=== PATIENT | male | born 1975 | race Two or more races ===

== ENCOUNTER 2017-02-02 19:46 | Emergency (ER) | payer OTHER ==
[~2017-02-02] VITALS: Ht 172.7 cm; Wt 167.8 kg
[~2017-02-02 19:46] MED LIST: ALBU90OI INH; AZIT250 PO; ERYT500 PO; HYDGUAL120 PO; OXYACE5T PO; PRED20 PO; QUET100
[2017-02-02] MEDS ORDERED: Bactrim Ds Tab1 EACH PO ×2 (21:49→22:09)
[2017-02-02] MEDS ORDERED: Keflex500 MG PO ×2 (21:49→22:09)
[2018-01-09] MEDS ORDERED: ZESTORETIC 20-121 EA PO (14:27)
[2018-01-21] MEDS ORDERED: ASPI325 PO (13:58)
[2018-01-21] MEDS ORDERED: ATOR40TA PO (13:59)
[2018-01-21] MEDS ORDERED: LISI5 PO (14:00)
== END 2017-02-02 22:13 | disposition home or self-care (01) ==
LOC: ER 19:46
DX: L03.116 Cellulitis of left lower limb (principal); I11.0 Hypertensive heart disease with heart failure; I50.9 Heart failure, unspecified
CPT/HCPCS: 99283

== ENCOUNTER 2021-08-14 05:14 | Observation (INO) | payer OTHER ==
[~2021-08-14] VITALS: Ht 185.4 cm; Wt 162.0 kg
[~2021-08-14 05:14] MED LIST changes: +ASPI325 PO; +ATOR40TA PO; +Bactrim Ds Tab1 EACH PO; +Keflex500 MG PO; +LISI5 PO; +ZESTORETIC 20-121 EA PO
[2021-08-14 05:51] LABS: BASOPHILS ABSOLUTE AUTO 0.06 K/mm3 (0.00-0.23); BASOPHILS PERCENT AUTO 1 % (0-2); EOSINOPHILS ABSOLUTE AUTO 0.43 K/mm3 (0.00-0.68); EOSINOPHILS PERCENT AUTO 4 % (0-6); Hemoglobin 15.5 g/dL (13.5-17.5); IMMATURE GRAN ABSOLUTE AUTO 0.05 K/mm3 (0.00-0.10); IMMATURE GRAN PERCENT AUTO 1 % (0-1); LYMPHOCYTES ABSOLUTE AUTO 2.65 K/mm3 (0.84-5.20); LYMPHOCYTES PERCENT AUTO 25 % (21-46); MONOCYTES ABSOLUTE AUTO 0.53 K/mm3 (0.16-1.47); MONOCYTES PERCENT AUTO 5 % (4-13); Mean Corpuscular HGB 26.4 pg (26.0-34.0); Mean Corpuscular HGB Conc 32.3 g/dL (31.5-36.5); Mean Corpuscular Volume 82 fL (80-100); Mean Platelet Volume 10.9 fL (9.1-12.4); NEUTROPHILS ABSOLUTE AUTO 6.83 K/mm3 (1.96-9.15); NEUTROPHILS PERCENT AUTO 65 % (41-73); Platelet Count 289 K/mm3 (150-400); RDW Coefficient Variation 15.6 % (11.7-14.2); RDW Standard Deviation 46.2 fL (35.1-46.3); Red Blood Cell Count 5.87 M/mm3 (4.30-5.90); White Blood Cell Count 10.55 K/mm3 (4.00-11.30)
[2021-08-14 06:11] LABS: Albumin, Blood 3.4 g/dL (3.4-5.0); Albumin/Globulin Ratio 0.7 (0.8-1.8); Bilirubin, Total 0.4 mg/dL (0.1-1.0); Bun/Creatinine Ratio 17.7 (12.0-20.0); Creatinine, Blood 0.85 mg/dL (0.60-1.20); Globulin, Blood 4.6 g/dL (2.2-4.0); Potassium, Blood 3.8 mmol/L (3.5-5.5)
--- NOTE | 2021-08-14 11:57 | NUR ---
CONTACTED BY RADIOLOGY, INFORMED PATIENT EXCEEDS WEIGHT FOR MRI. DR ALCARAZ CONTACTED AND INFORMED.
[2021-08-14 15:17] LABS: U Amphetamine Screen DETECTED; U Barbituate Screen Not Detected; U Benzodiazapine Screen Not Detected; U Methamphetamine Screen DETECTED
[2021-08-14 15:18] LABS: U Buprenorphine Screen Not Detected; U Cannabinoids Screen Not Detected; U Cocaine Screen Not Detected; U Methadone Screen Not Detected; U Opiates Screen Not Detected; U Oxycodone Screen Not Detected; U Phencyclidine Screen Not Detected; U Propoxyphene Screen Not Detected
--- NOTE | 2021-08-14 17:34 | NUR ---
SHIFT SUMMARY PT ARRIVED FROM ER TODAY FOR CVA. LEFT SIDED WEAKNESS SLIGHTLY IMPROVED BUT STILL PRESENT.INFORMED BY RADIOLOGY THAT PATIENT EXEEDS WEIGHT LIMIT FOR MRI, CONTACTED DR ALCARAZ AND INFORMED HIM. PT SAW PATIENT, ECHO COMPLETED. FAMILY AT BEDSIDE. WILL CONTINUE TO MONITOR.
--- NOTE | 2021-08-15 04:17 | NUR ---
SHIFT SUMMARY, PATIENT AXOX 4 AND ONE ASSIST TO BSC. UNDERWRITING MANAGER STRONG AND EQUAL. REPORTS LEFT SIDE WEAKNESS IMPROVING. PIV REMAINS INTACT. TELE MONITOR NSR 81. MOTHER PRESENT IN ROOM THROUGHOUT THE SHIFT. VSS/AFEBRILE. DENIES PAIN, SOB, AND N/V. INCONTINENT AT TIMES. USED CPAP PART OF NIGHT STATING 94% ON CONTINUOUS PULSE OXIMETRY. CALL LIGHT IN REACH. BED IN LOWEST POSITION. WILL CONTINUE TO MONITOR UNTIL DAY SHIFT NURSE ASSUMES CARE.
[2021-08-15 05:18] LABS: CHOL/HDL RATIO 2.7; Cholesterol 119 mg/dL (50-200); HDL Cholesterol 44 mg/dL (>39); LDL/HDL RATIO 1.2; Low Density Lipoprotein Chol 54 mg/dL (0-110); Triglycerides 104 mg/dL (30-160); Very Low Density Lipoprot Chol 20 mg/dL (6-32)
[2021-08-15] MEDS ORDERED: NICO21TP TOP (12:24)
--- NOTE | 2021-08-15 13:53 | NUR ---
DISCHARGE SUMMARY PT RECEIVED DISCHARGE, FOLLOWUP, AND MEDICATION INSTRUCTIONS. PT VOICED COMPLETE UNDERSTANDING AND HAS NO QUESTIONS AT THIS TIME. IV REMOVED WITH CATHETER TIP INTACT.
[2021-08-23] MEDS ORDERED: CLOP75 PO (01:03)
== END 2021-08-15 14:45 | disposition home health service (06) ==
LOC: ER 05:14 → MEDS 05:15
PROVIDERS: Student in an Organized Health Care Education/Training Program; ADMIT Hospitalist
DX: G45.9 Transient cerebral ischemic attack, unspecified (principal); I11.0 Hypertensive heart disease with heart failure; I50.9 Heart failure, unspecified; E11.9 Type 2 diabetes mellitus without complications; J44.9 Chronic obstructive pulmonary disease, unspecified; F17.210 Nicotine dependence, cigarettes, uncomplicated; F41.9 Anxiety disorder, unspecified; F15.10 Other stimulant abuse, uncomplicated; G47.33 Obstructive sleep apnea (adult) (pediatric); E66.9 Obesity, unspecified
CPT/HCPCS: 36415; 70450; 70496; 70498; 80053; 80061; 82947; 83036; 84443; 85025; 93005; 93010; 94640; 94660; 94664; 94760; 94762; 96372; 97116; 97161; 99285-25; A9270; C8929; G0378; J1650; Q9957; Q9967

== ENCOUNTER 2021-09-03 13:09 | Emergency (ER) | payer OTHER ==
[~2021-09-03] VITALS: Ht 182.9 cm; Wt 167.8 kg
[~2021-09-03 13:09] MED LIST changes: +CLOP75 PO; +NICO21TP TOP
[2021-09-03] MEDS ORDERED: Seroquel Xr50 MG PO (13:40)
[2021-09-03] MEDS ORDERED: Aspir 8181 MG PO (13:40)
[2021-09-03] MEDS ORDERED: METF500 PO (13:41)
[2021-09-03] MEDS ORDERED: POTA10T PO (13:41)
[2021-09-03] MEDS ORDERED: VITAMIN D5000 UNIT PO (13:41)
[2021-09-03 13:48] LABS: BASOPHILS ABSOLUTE AUTO 0.07 K/mm3 (0.00-0.23); BASOPHILS PERCENT AUTO 1 % (0-2); EOSINOPHILS ABSOLUTE AUTO 0.43 K/mm3 (0.00-0.68); EOSINOPHILS PERCENT AUTO 4 % (0-6); Hematocrit 44.7 % (37.0-53.0); Hemoglobin 14.7 g/dL (13.5-17.5); IMMATURE GRAN ABSOLUTE AUTO 0.04 K/mm3 (0.00-0.10); IMMATURE GRAN PERCENT AUTO 0 % (0-1); LYMPHOCYTES ABSOLUTE AUTO 2.87 K/mm3 (0.84-5.20); LYMPHOCYTES PERCENT AUTO 26 % (21-46); MONOCYTES ABSOLUTE AUTO 0.74 K/mm3 (0.16-1.47); MONOCYTES PERCENT AUTO 7 % (4-13); Mean Corpuscular HGB 26.3 pg (26.0-34.0); Mean Corpuscular HGB Conc 32.9 g/dL (31.5-36.5); Mean Corpuscular Volume 80 fL (80-100); Mean Platelet Volume 11.1 fL (9.1-12.4); NEUTROPHILS ABSOLUTE AUTO 7.07 K/mm3 (1.96-9.15); NEUTROPHILS PERCENT AUTO 63 % (41-73); Platelet Count 319 K/mm3 (150-400); RDW Coefficient Variation 15.7 % (11.7-14.2); White Blood Cell Count 11.22 K/mm3 (4.00-11.30)
[2021-09-03 14:05] LABS: Albumin, Blood 3.6 g/dL (3.4-5.0); Albumin/Globulin Ratio 0.9 (0.8-1.8); Bilirubin, Total 0.6 mg/dL (0.1-1.0); Bun/Creatinine Ratio 18.2 (12.0-20.0); Creatinine, Blood 0.88 mg/dL (0.60-1.20); Potassium, Blood 4.2 mmol/L (3.5-5.5); Total Protein, Blood 7.6 g/dL (6.4-8.2)
[2021-09-03 14:45] LABS: CPK Creatine Kinase 43 U/L (39-308)
[2021-09-03 14:46] LABS: Creatine Kinase MB <1.0 ng/mL (0.0-3.6); Creatine Kinase MB Index Unable to Calculate (0.0-4.0)
[2021-09-03 15:06] LABS: Influenza A, PCR NEGATIVE (NEGATIVE); Influenza B, PCR NEGATIVE (NEGATIVE); Resp Syncytial Virus, PCR NEGATIVE (NEGATIVE); SARS-Cov-2 (COVID-19) PCR, MMC NEGATIVE (NEGATIVE)
[2021-09-03 16:22] LABS: Base Excess Venous 5.6 mmol/L; Bicarbonate Venous 28.4 mmol/L (24.0-30.0); PCO2 Venous 48.8 mmHg (38-42); PO2 Venous 104 mmHg (38-42)
== END 2021-09-03 17:13 | disposition home or self-care (01) ==
LOC: ER 13:09
PROVIDERS: Physician Assistant; Student in an Organized Health Care Education/Training Program
DX: R40.0 Somnolence (principal); R47.9 Unspecified speech disturbances; T43.595A Adverse effect of other antipsychotics and neuroleptics, initial encounter; R06.89 Other abnormalities of breathing; J44.9 Chronic obstructive pulmonary disease, unspecified; G45.9 Transient cerebral ischemic attack, unspecified; I11.0 Hypertensive heart disease with heart failure; I50.9 Heart failure, unspecified; F17.210 Nicotine dependence, cigarettes, uncomplicated; Z79.899 Other long term (current) drug therapy; Z79.82 Long term (current) use of aspirin; Y92.9 Unspecified place or not applicable; Z20.822 Contact with and (suspected) exposure to COVID-19
CPT/HCPCS: 0241U; 36415; 70450; 71045; 80053; 82550; 82553; 82803; 82947; 85025; 93005; 93010

== ENCOUNTER → 2022-05-10 | Outpatient (CLI) | payer OTHER ==
[~2022-05-10] MED LIST changes: +Aspir 8181 MG PO; +METF500 PO; +POTA10T PO; +Seroquel Xr50 MG PO; +VITAMIN D5000 UNIT PO
[2022-05-10 16:14] LABS: Bun/Creatinine Ratio 19.1 (12.0-20.0); Calcium, Blood 9.6 mg/dL (8.5-10.1); Creatinine, Blood 0.78 mg/dL (0.60-1.20); Magnesium, Blood 2.2 mg/dL (1.6-2.4); Potassium, Blood 4.2 mmol/L (3.5-5.5)
== END | disposition home or self-care (01) ==
LOC: LAB 13:50 → LAB SHORT 13:50
PROVIDERS: Family Medicine
DX: M62.81 Muscle weakness (generalized) (principal)
CPT/HCPCS: 80048; 83735

== ENCOUNTER → 2022-07-20 | Outpatient (CLI) | payer OTHER ==
[2022-07-20 14:11] LABS: Calcium, Blood 9.2 mg/dL (8.5-10.1); Potassium, Blood 4.3 mmol/L (3.5-5.5)
== END | disposition home or self-care (01) ==
LOC: LAB SHORT 11:51 → LAB 11:51
PROVIDERS: Family Medicine
DX: Z13.228 Encounter for screening for other metabolic disorders (principal)
CPT/HCPCS: 80048

== ENCOUNTER 2022-10-08 15:29 | Emergency (ER) | payer OTHER ==
[~2022-10-08] VITALS: Ht 188 cm; Wt 167.8 kg
[2022-10-08 15:52] LABS: BASOPHILS ABSOLUTE AUTO 0.08 K/mm3 (0.00-0.23); BASOPHILS PERCENT AUTO 1 % (0-2); EOSINOPHILS ABSOLUTE AUTO 0.37 K/mm3 (0.00-0.68); EOSINOPHILS PERCENT AUTO 4 % (0-6); Hematocrit 46.3 % (37.0-53.0); Hemoglobin 15.2 g/dL (13.5-17.5); IMMATURE GRAN ABSOLUTE AUTO 0.03 K/mm3 (0.00-0.10); IMMATURE GRAN PERCENT AUTO 0 % (0-1); LYMPHOCYTES ABSOLUTE AUTO 3.15 K/mm3 (0.84-5.20); LYMPHOCYTES PERCENT AUTO 36 % (21-46); MONOCYTES ABSOLUTE AUTO 0.67 K/mm3 (0.16-1.47); MONOCYTES PERCENT AUTO 8 % (4-13); Mean Corpuscular HGB Conc 32.8 g/dL (31.5-36.5); Mean Corpuscular Volume 82 fL (80-100); Mean Platelet Volume 10.4 fL (9.1-12.4); NEUTROPHILS ABSOLUTE AUTO 4.49 K/mm3 (1.96-9.15); NEUTROPHILS PERCENT AUTO 51 % (41-73); Platelet Count 327 K/mm3 (150-400); RDW Coefficient Variation 14.3 % (11.7-14.2); RDW Standard Deviation 42.6 fL (35.1-46.3); Red Blood Cell Count 5.63 M/mm3 (4.30-5.90); White Blood Cell Count 8.79 K/mm3 (4.00-11.30)
[2022-10-08 16:08] LABS: Source, Urine Clean Catch
[2022-10-08 16:12] LABS: Albumin, Blood 4.1 g/dL (3.4-5.0); Bilirubin, Total 0.3 mg/dL (0.1-1.0); Calcium, Blood 9.3 mg/dL (8.5-10.1); Creatinine, Blood 0.94 mg/dL (0.60-1.20); Potassium, Blood 4.3 mmol/L (3.5-5.5); Total Protein, Blood 8.1 g/dL (6.4-8.2)
[2022-10-08 16:12] LABS: Appearance, Urine Clear (Clear); Bilirubin, Urine Neg (Neg); Blood, Urine Neg (Neg); Glucose Qualitative, Urine Neg (Neg); Ketones, Urine Neg (Neg); Leukocyte Esterase, Urine 1+ (Neg); Nitrite, Urine Neg (Neg); Protein, Urine Neg (Neg); Specific Gravity, Urine 1.015 (1.003-1.022); Urobilinogen, Urine NORM (Normal)
[2022-10-08 16:29] LABS: Color, Urine Pale Yellow (P-Yellow)
[2022-10-08 16:31] LABS: Bacteria Mod /hpf; Mucus Light (0-Heavy); Red Blood Cells, Urine 0-2 /hpf (0-2); Squamous Epithelial Cells Not Seen /hpf (Few)
[2022-10-08] MEDS ORDERED: Macrobid 100 M100 MG PO (19:43)
[2022-10-08 19:46] VITALS: BP 118/73
== END 2022-10-08 19:51 | disposition home or self-care (01) ==
LOC: ER 15:29
PROVIDERS: Physician Assistant
DX: N39.0 Urinary tract infection, site not specified (principal); R06.02 Shortness of breath; I11.0 Hypertensive heart disease with heart failure; I50.9 Heart failure, unspecified; J44.9 Chronic obstructive pulmonary disease, unspecified; F17.210 Nicotine dependence, cigarettes, uncomplicated; Z79.82 Long term (current) use of aspirin; Z79.02 Long term (current) use of antithrombotics/antiplatelets; Z79.899 Other long term (current) drug therapy
CPT/HCPCS: 71046; 80053; 81001; 83880; 84484; 85025; 87086; 99283-25; A9270

== ENCOUNTER 2023-11-23 11:47 | Observation (INO) | payer OTHER ==
[~2023-11-23] VITALS: Ht 182.9 cm; Wt 169.2 kg
[~2023-11-23 11:47] MED LIST changes: +Macrobid 100 M100 MG PO
[2023-11-23 12:24] LABS: BASOPHILS ABSOLUTE AUTO 0.07 K/mm3 (0.00-0.23); BASOPHILS PERCENT AUTO 1 % (0-2); EOSINOPHILS ABSOLUTE AUTO 0.44 K/mm3 (0.00-0.68); EOSINOPHILS PERCENT AUTO 5 % (0-6); Hematocrit 42.6 % (37.0-53.0); Hemoglobin 13.6 g/dL (13.5-17.5); IMMATURE GRAN ABSOLUTE AUTO 0.02 K/mm3 (0.00-0.10); IMMATURE GRAN PERCENT AUTO 0 % (0-1); LYMPHOCYTES ABSOLUTE AUTO 2.65 K/mm3 (0.84-5.20); LYMPHOCYTES PERCENT AUTO 27 % (21-46); MONOCYTES ABSOLUTE AUTO 0.64 K/mm3 (0.16-1.47); MONOCYTES PERCENT AUTO 7 % (4-13); Mean Corpuscular HGB 25.3 pg (26.0-34.0); Mean Corpuscular HGB Conc 31.9 g/dL (31.5-36.5); Mean Corpuscular Volume 79 fL (80-100); Mean Platelet Volume 10.5 fL (9.1-12.4); NEUTROPHILS ABSOLUTE AUTO 6.05 K/mm3 (1.96-9.15); NEUTROPHILS PERCENT AUTO 61 % (41-73); Platelet Count 328 K/mm3 (150-400); RDW Coefficient Variation 15.9 % (11.7-14.2); RDW Standard Deviation 45.3 fL (35.1-46.3); Red Blood Cell Count 5.37 M/mm3 (4.30-5.90); White Blood Cell Count 9.87 K/mm3 (4.00-11.30)
[2023-11-23 12:40] LABS: Albumin, Blood 3.6 g/dL (3.4-5.0); Albumin/Globulin Ratio 0.9 (0.8-1.8); Bilirubin, Total 0.4 mg/dL (0.1-1.0); Bun/Creatinine Ratio 20.8 (12.0-20.0); Calcium, Blood 8.9 mg/dL (8.5-10.1); Creatinine, Blood 1.06 mg/dL (0.60-1.20); Globulin, Blood 3.8 g/dL (2.2-4.0); Potassium, Blood 4.1 mmol/L (3.5-5.5); Total Protein, Blood 7.4 g/dL (6.4-8.2)
[2023-11-23] MEDS ORDERED: Vancomycin HCL 2,000 MG in NS 520 ML IV ONE (14:30)
[2023-11-23] MEDS ORDERED: Ipratropium Bromide INH 0.02% 0.5 mg/2.5ML Vial INH SCH (14:30)
[2023-11-23] MEDS ORDERED: Albuterol 2.5 MG/3 ML VIAL INH SCH (14:30)
[2023-11-23] MEDS ORDERED: MethylPREDNISolone Sod Succ 125 MG Vial IV ONE (14:30)
[2023-11-23] MEDS ORDERED: Ondansetron HCl 2 MG / ML 2ML Vial IV PRN (16:50)
[2023-11-23] MEDS ORDERED: Ipratropium/Albuterol SulF 2.5-0.5MG/3 ML Amp INH SCH (16:55)
[2023-11-23] MEDS ORDERED: FLU VACC TS2024-25(6MOS UP)/PF 45 MCG/0.5 ML SYRINGE IM SCH (16:55)
[2023-11-23] MEDS ORDERED: FentaNYL Citrate 50 MCG/ML 2 ML Injection IV PRN (16:55)
[2023-11-23] MEDS ORDERED: Acetaminophen 325 MG TABLET PO PRN (16:55)
[2023-11-23] MEDS ORDERED: Ketorolac Tromethamine 30mg Vial IV PRN (17:15)
[2023-11-23] MEDS ORDERED: CeFAZolin Sodium 2,000 MG in NS 100 ML IV SCH (18:00)
[2023-11-23] MEDS ORDERED: QUEtiapine Fumarate 50 MG TAB PO SCH (21:00)
[2023-11-23] MEDS ORDERED: Lactobacil 2-S.Thermo-Bifido 1 1 Cap PO SCH (21:00)
[2023-11-23] MEDS ORDERED: NS 250 ML IV PRN (23:20)
[2023-11-24] MEDS ORDERED: Vancomycin HCL 1,750 MG in NS 500 ML IV SCH (03:00)
[2023-11-24] MEDS ORDERED: STEGLATRO5 MG PO (03:25)
[2023-11-24] MEDS ORDERED: PANT20 PO (03:25)
[2023-11-24] MEDS ORDERED: OXYB5 PO (03:26)
[2023-11-24] MEDS ORDERED: METO25ER PO (03:27)
[2023-11-24] MEDS ORDERED: Budeprion Xl300 MG PO (03:29)
[2023-11-24] MEDS ORDERED: FURO20 PO (03:29)
[2023-11-24] MEDS ORDERED: DEPO-TESTO200 MG/1 M (03:30)
--- NOTE | 2023-11-24 05:46 | NUR ---
SHIFT SUMMARY PT ARRIVED TO MEDICAL FLOOR @1999. FINANCIAL AID ADVISOR PAIGE COMPLETED THE ADMISSION ASSESSMENT. THIS ASSET PROTECTION AGENT AND RUPERTO GREEN COMPLETED THE SKIN CHECK. PICTURES OF THE LE'S IN THE CHART. THIS ASSET PROTECTION AGENT COMPLETED THE MEDICATION RECONCILIATION; PT WAS NOT ABLE TO PROVIDE THE INFO, MOTHER BY THE BEDSIDE WITH HOME MEDICATIONS GAVE THE PT'S INFORMATION. MOTHER AND PT LIVE TOGETHER. THIS ASSET PROTECTION AGENT COMPLETED THE HEALTH HX INTERVENTION. IV ABX INFUSED ORDERED. PT HAS IV ON RIGHT FOREARM. PT REFUSED CPAP MOTHER REPORTED PT DOES NOT USE HIS CPAP AT HOME. O2 @1-2LITERS PER RT. CONTINUOUS PULSE OX>95%. PT WAS MEDICATED FOR PAIN ORDERED WITH TORADOL AND 1X WITH FENTANYL. SEE EMAR. MOTHER SPENDING THE NIGHT WITH THE PT. NO ACUTE EVENTS DURING THIS SHIFT. BED AT THE LOWEST POSITION, CALL LIGHT W/I REACH. PT IS ABLE TO MAKE HIS NEEDS KNOWN. LE'S ELEVATED WITH PILLOWS.
[2023-11-24 06:16] LABS: BASOPHILS ABSOLUTE AUTO 0.01 K/mm3 (0.00-0.23); BASOPHILS PERCENT AUTO 0 % (0-2); EOSINOPHILS ABSOLUTE AUTO 0.01 K/mm3 (0.00-0.68); EOSINOPHILS PERCENT AUTO 0 % (0-6); Hematocrit 42.4 % (37.0-53.0); Hemoglobin 12.9 g/dL (13.5-17.5); IMMATURE GRAN ABSOLUTE AUTO 0.02 K/mm3 (0.00-0.10); IMMATURE GRAN PERCENT AUTO 0 % (0-1); LYMPHOCYTES ABSOLUTE AUTO 1.09 K/mm3 (0.84-5.20); LYMPHOCYTES PERCENT AUTO 13 % (21-46); MONOCYTES ABSOLUTE AUTO 0.39 K/mm3 (0.16-1.47); MONOCYTES PERCENT AUTO 5 % (4-13); Mean Corpuscular HGB 24.9 pg (26.0-34.0); Mean Corpuscular HGB Conc 30.4 g/dL (31.5-36.5); Mean Corpuscular Volume 82 fL (80-100); Mean Platelet Volume 11.1 fL (9.1-12.4); NEUTROPHILS ABSOLUTE AUTO 6.91 K/mm3 (1.96-9.15); NEUTROPHILS PERCENT AUTO 82 % (41-73); Platelet Count 289 K/mm3 (150-400); RDW Standard Deviation 47.6 fL (35.1-46.3); Red Blood Cell Count 5.18 M/mm3 (4.30-5.90); White Blood Cell Count 8.43 K/mm3 (4.00-11.30)
[2023-11-24 06:20] VITALS: BP 127/66
[2023-11-24 06:37] LABS: Bun/Creatinine Ratio 26.3 (12.0-20.0); Calcium, Blood 8.2 mg/dL (8.5-10.1); Creatinine, Blood 0.88 mg/dL (0.60-1.20); Potassium, Blood 4.7 mmol/L (3.5-5.5)
[2023-11-24 07:39] VITALS: BP 117/63
[2023-11-24] MEDS ORDERED: OxyCODONE HCL 5 MG TAB PO PRN (08:40)
[2023-11-24] MEDS ORDERED: Clopidogrel Bisulfate 75 MG Tab PO SCH (09:00)
[2023-11-24] MEDS ORDERED: Metoprolol Succinate 25 MG TABCR PO SCH ×2 (09:00)
[2023-11-24] MEDS ORDERED: buPROPion HCL 150 MG TAB.SR.12H PO SCH (09:00)
[2023-11-24] MEDS ORDERED: Lisinopril 10 MG Tab PO SCH (09:00)
[2023-11-24] MEDS ORDERED: oxyBUTYnin chloride 5 MG TAB PO SCH (09:00)
[2023-11-24] MEDS ORDERED: Atorvastatin 40 MG Tab PO SCH (09:00)
[2023-11-24] MEDS ORDERED: Furosemide 20 MG Tab PO SCH (09:00)
[2023-11-24] MEDS ORDERED: Cholecalciferol 1000 Unit Tablet (=25MCG) PO SCH (09:00)
[2023-11-24] MEDS ORDERED: Enoxaparin 40 MG/0.4 ML SYR SC SCH (09:00)
[2023-11-24] MEDS ORDERED: Aspirin 81 MG TabEC PO SCH (09:00)
[2023-11-24] MEDS ORDERED: HyDROXyzine HCl 25 MG Tab PO PRN (09:05)
[2023-11-24] MEDS ORDERED: HYDROcodone 5-APAP 325 TAB PO PRN (09:10)
[2023-11-24] MEDS ORDERED: Nicotine 21 MG PATCH TOP SCH (10:00)
[2023-11-24] MEDS ORDERED: HyDROXyzine HCl 25 MG Tab PO SCH ×2 (11:33→13:00)
[2023-11-24] MEDS ORDERED: CEFD300 PO (14:03)
[2023-11-24] MEDS ORDERED: VISBIOME 112.51 EACH PO (14:03)
--- NOTE | 2023-11-24 14:48 | NUR ---
PT DISCHARGED TO HOME. FAMILY PRESENT AT TIME OF DISCHARGE. ALL VALUABLES RETURNED TO PT. DISCHARGE INSTRUCTIONS PROVIDED AND EDUCATED ON.
[2023-11-25] MEDS ORDERED: Pantoprazole Sodium 20 MG Tab PO SCH (06:00)
[2023-11-25] MEDS ORDERED: Nicotine 21 MG PATCH TOP SCH (09:00)
== END 2023-11-24 14:32 | disposition home or self-care (01) ==
LOC: ER 11:47 → MEDS 11:48
PROVIDERS: Physician Assistant; ADMIT Internal Medicine
DX: L03.116 Cellulitis of left lower limb (principal); L03.115 Cellulitis of right lower limb; I87.2 Venous insufficiency (chronic) (peripheral); I11.0 Hypertensive heart disease with heart failure; I50.32 Chronic diastolic (congestive) heart failure; J44.9 Chronic obstructive pulmonary disease, unspecified; G47.33 Obstructive sleep apnea (adult) (pediatric); F19.10 Other psychoactive substance abuse, uncomplicated; R73.03 Prediabetes; F17.210 Nicotine dependence, cigarettes, uncomplicated; E66.01 Morbid (severe) obesity due to excess calories; Z68.43 Body mass index [BMI] 50.0-59.9, adult; Z79.84 Long term (current) use of oral hypoglycemic drugs; Z79.82 Long term (current) use of aspirin; Z79.899 Other long term (current) drug therapy; Z86.73 Personal history of transient ischemic attack (TIA), and cerebral infarction without residual deficits
CPT/HCPCS: 36415; 71046; 76882; 80048; 80053; 83690; 83880; 84484; 85025; 93005; 93010; 93306; 94640; 94644; 94664; 94762; 96365; 96366; 96367; 96372; 96375; 96376; 99285-25; A9270; G0378; J0690; J1650; J1885; J2919; J3010; J3370; J7040; J7050

== ENCOUNTER 2023-11-28 10:59 | Emergency (ER) | payer OTHER ==
[~2023-11-28] VITALS: Ht 182.9 cm; Wt 170.1 kg
[~2023-11-28 10:59] MED LIST changes: +Budeprion Xl300 MG PO; +CEFD300 PO; +DEPO-TESTO200 MG/1 M; +FURO20 PO; +METO25ER PO; +OXYB5 PO; +PANT20 PO; +STEGLATRO5 MG PO; +VISBIOME 112.51 EACH PO
[2023-11-28 11:43] LABS: BASOPHILS ABSOLUTE AUTO 0.06 K/mm3 (0.00-0.23); BASOPHILS PERCENT AUTO 1 % (0-2); EOSINOPHILS ABSOLUTE AUTO 0.51 K/mm3 (0.00-0.68); EOSINOPHILS PERCENT AUTO 6 % (0-6); Hematocrit 45.6 % (37.0-53.0); Hemoglobin 14.4 g/dL (13.5-17.5); IMMATURE GRAN ABSOLUTE AUTO 0.04 K/mm3 (0.00-0.10); IMMATURE GRAN PERCENT AUTO 0 % (0-1); LYMPHOCYTES ABSOLUTE AUTO 2.78 K/mm3 (0.84-5.20); LYMPHOCYTES PERCENT AUTO 30 % (21-46); MONOCYTES ABSOLUTE AUTO 0.62 K/mm3 (0.16-1.47); MONOCYTES PERCENT AUTO 7 % (4-13); Mean Corpuscular HGB 24.9 pg (26.0-34.0); Mean Corpuscular HGB Conc 31.6 g/dL (31.5-36.5); Mean Corpuscular Volume 79 fL (80-100); Mean Platelet Volume 10.3 fL (9.1-12.4); NEUTROPHILS ABSOLUTE AUTO 5.34 K/mm3 (1.96-9.15); NEUTROPHILS PERCENT AUTO 57 % (41-73); Platelet Count 358 K/mm3 (150-400); RDW Coefficient Variation 15.9 % (11.7-14.2); Red Blood Cell Count 5.79 M/mm3 (4.30-5.90); White Blood Cell Count 9.35 K/mm3 (4.00-11.30)
[2023-11-28 12:20] LABS: Albumin, Blood 3.5 g/dL (3.4-5.0); Albumin/Globulin Ratio 0.9 (0.8-1.8); Bilirubin, Total 0.5 mg/dL (0.1-1.0); Bun/Creatinine Ratio 31.2 (12.0-20.0); Calcium, Blood 9.2 mg/dL (8.5-10.1); Globulin, Blood 3.8 g/dL (2.2-4.0); Potassium, Blood 4.2 mmol/L (3.5-5.5); Total Protein, Blood 7.3 g/dL (6.4-8.2)
[2023-11-28] MEDS ORDERED: CeFAZolin Sodium 2,000 MG in NS 100 ML IV ONE (13:45)
[2023-11-28] MEDS ORDERED: Bactrim Ds Tab1 EACH PO (15:07)
[2023-11-28] MEDS ORDERED: CEPH500 PO (15:07)
[2023-11-28 15:15] VITALS: BP 142/80
[2023-11-28] MEDS ORDERED: IBUP800 PO (15:22)
[2023-11-28] MEDS ORDERED: Ibuprofen 400 MG Tab PO ONE (15:25)
== END 2023-11-28 15:36 ==
LOC: ER 10:59
PROVIDERS: Emergency Medicine
DX: L97.229 Non-pressure chronic ulcer of left calf with unspecified severity (principal); L08.9 Local infection of the skin and subcutaneous tissue, unspecified; I11.0 Hypertensive heart disease with heart failure; I50.30 Unspecified diastolic (congestive) heart failure; G47.33 Obstructive sleep apnea (adult) (pediatric); J44.89 Other specified chronic obstructive pulmonary disease; F17.210 Nicotine dependence, cigarettes, uncomplicated; Z86.73 Personal history of transient ischemic attack (TIA), and cerebral infarction without residual deficits; Z79.02 Long term (current) use of antithrombotics/antiplatelets; Z79.84 Long term (current) use of oral hypoglycemic drugs; Z79.899 Other long term (current) drug therapy
CPT/HCPCS: 71046; 80053; 83880; 84484; 85025; 93005; 93010; 96365; 99285-25; A9270; J0690

== ENCOUNTER 2023-12-12 03:32 | Day surgery (SDC) | payer OTHER ==
[~2023-12-12 03:32] MED LIST changes: +CEPH500 PO; +IBUP800 PO
[2023-12-12] MEDS ORDERED: Lidocaine HCl 4% Cream 5 GM ONE (13:03)
== END 2023-12-12 23:00 | disposition home or self-care (01) ==
LOC: WOUND 03:32
DX: S81.802A Unspecified open wound, left lower leg, initial encounter (principal); I87.2 Venous insufficiency (chronic) (peripheral); E11.51 Type 2 diabetes mellitus with diabetic peripheral angiopathy without gangrene; I10 Essential (primary) hypertension; J44.9 Chronic obstructive pulmonary disease, unspecified; I25.10 Atherosclerotic heart disease of native coronary artery without angina pectoris; I11.0 Hypertensive heart disease with heart failure; I50.9 Heart failure, unspecified; F17.200 Nicotine dependence, unspecified, uncomplicated
CPT/HCPCS: A9270; G0463

== ENCOUNTER 2023-12-18 04:39 | Day surgery (SDC) | payer OTHER ==
[2023-12-18] MEDS ORDERED: Lidocaine HCl 4% Cream 5 GM ONE (14:00)
== END 2023-12-18 23:00 | disposition home or self-care (01) ==
LOC: WOUND 04:39
DX: S81.802A Unspecified open wound, left lower leg, initial encounter (principal); E11.622 Type 2 diabetes mellitus with other skin ulcer; I10 Essential (primary) hypertension; E11.51 Type 2 diabetes mellitus with diabetic peripheral angiopathy without gangrene; I87.2 Venous insufficiency (chronic) (peripheral); Z72.0 Tobacco use; X58.XXXA Exposure to other specified factors, initial encounter
CPT/HCPCS: A6213; A9270

== ENCOUNTER 2024-01-02 01:00 | Day surgery (SDC) | payer OTHER | END 2024-01-02 23:34 | disposition home or self-care (01) | LOC: WOUND 01:00 | DX: E11.622 Type 2 diabetes mellitus with other skin ulcer (principal); L97.822 Non-pressure chronic ulcer of other part of left lower leg with fat layer exposed; I10 Essential (primary) hypertension; E11.51 Type 2 diabetes mellitus with diabetic peripheral angiopathy without gangrene; I87.2 Venous insufficiency (chronic) (peripheral); Z72.0 Tobacco use ==

== ENCOUNTER 2024-01-09 05:40 | Day surgery (SDC) | payer OTHER | END 2024-01-09 23:00 | disposition home or self-care (01) | LOC: WOUND 05:40 | DX: E11.51 Type 2 diabetes mellitus with diabetic peripheral angiopathy without gangrene (principal); S81.802D Unspecified open wound, left lower leg, subsequent encounter; X58.XXXD Exposure to other specified factors, subsequent encounter; I10 Essential (primary) hypertension; I87.2 Venous insufficiency (chronic) (peripheral); Z72.0 Tobacco use ==

== ENCOUNTER 2024-01-16 02:53 | Day surgery (SDC) | payer OTHER | END 2024-01-16 23:00 | disposition home or self-care (01) | LOC: WOUND 02:53 | DX: E11.622 Type 2 diabetes mellitus with other skin ulcer (principal); L97.822 Non-pressure chronic ulcer of other part of left lower leg with fat layer exposed; I87.2 Venous insufficiency (chronic) (peripheral); I10 Essential (primary) hypertension; E11.51 Type 2 diabetes mellitus with diabetic peripheral angiopathy without gangrene; Z72.0 Tobacco use ==

== ENCOUNTER 2024-01-23 04:18 | Day surgery (SDC) | payer OTHER | END 2024-01-23 23:00 | disposition home or self-care (01) | LOC: WOUND 04:18 | DX: E11.622 Type 2 diabetes mellitus with other skin ulcer (principal); L97.822 Non-pressure chronic ulcer of other part of left lower leg with fat layer exposed; I87.2 Venous insufficiency (chronic) (peripheral); E11.51 Type 2 diabetes mellitus with diabetic peripheral angiopathy without gangrene; I10 Essential (primary) hypertension; Z72.0 Tobacco use ==

== ENCOUNTER 2024-01-29 04:38 | Day surgery (SDC) | payer OTHER | END 2024-01-31 23:00 | disposition home or self-care (01) | LOC: WOUND 04:38 | DX: I87.312 Chronic venous hypertension (idiopathic) with ulcer of left lower extremity (principal); L97.222 Non-pressure chronic ulcer of left calf with fat layer exposed; E11.622 Type 2 diabetes mellitus with other skin ulcer; I87.2 Venous insufficiency (chronic) (peripheral); E11.51 Type 2 diabetes mellitus with diabetic peripheral angiopathy without gangrene; I10 Essential (primary) hypertension; Z72.0 Tobacco use ==

== ENCOUNTER 2024-02-06 03:19 | Day surgery (SDC) | payer OTHER | END 2024-02-06 23:00 | disposition home or self-care (01) | LOC: WOUND 03:19 | DX: E11.622 Type 2 diabetes mellitus with other skin ulcer (principal); L97.822 Non-pressure chronic ulcer of other part of left lower leg with fat layer exposed; I87.312 Chronic venous hypertension (idiopathic) with ulcer of left lower extremity; I87.2 Venous insufficiency (chronic) (peripheral); E11.51 Type 2 diabetes mellitus with diabetic peripheral angiopathy without gangrene; I10 Essential (primary) hypertension; Z72.0 Tobacco use | CPT/HCPCS: G0463 ==

== ENCOUNTER 2024-05-08 10:41 | Emergency (ER) | payer OTHER ==
[~2024-05-08] VITALS: Ht 182.9 cm; Wt 113.4 kg
[2024-05-08 15:00] VITALS: BP 145/88
[2024-05-08] MEDS ORDERED: Acetaminophen 500 MG Tab PO ONE (15:20)
[2024-05-08] MEDS ORDERED: Ibuprofen 600 MG Tab PO ONE (15:20)
== END 2024-05-08 15:20 | disposition home or self-care (01) ==
LOC: ER 10:41
DX: M79.661 Pain in right lower leg (principal); M79.89 Other specified soft tissue disorders; I82.811 Embolism and thrombosis of superficial veins of right lower extremity; J44.89 Other specified chronic obstructive pulmonary disease; I11.0 Hypertensive heart disease with heart failure; I50.30 Unspecified diastolic (congestive) heart failure; G47.33 Obstructive sleep apnea (adult) (pediatric); F17.210 Nicotine dependence, cigarettes, uncomplicated; Z98.890 Other specified postprocedural states; Z86.73 Personal history of transient ischemic attack (TIA), and cerebral infarction without residual deficits; Z79.84 Long term (current) use of oral hypoglycemic drugs; Z79.82 Long term (current) use of aspirin; Z79.01 Long term (current) use of anticoagulants; Z79.899 Other long term (current) drug therapy
CPT/HCPCS: 93971; 99284-25

== ENCOUNTER → 2024-08-29 | Outpatient (CLI) | payer OTHER ==
[2024-08-30 12:55] LABS: Campylobacter Sp Detected (NOT DETECT); E. Coli O157 Not Detected (NOT DETECT); Enteroaggregative E. coli-EAEC Not Detected (NOT DETECT); Enteropathogenic E. coli-EPEC Not Detected (NOT DETECT); Enterotoxigenic E. coli-ETEC Not Detected (NOT DETECT); Salmonella Sp Not Detected (NOT DETECT); Shiga Toxin-prod E. coli-STEC Not Detected (NOT DETECT); Shigella/Enteroin E. coli-EIEC Not Detected (NOT DETECT); Vibrio Sp Not Detected (NOT DETECT)
== END ==
LOC: LAB SHORT 19:30 → LAB 19:30
PROVIDERS: Physician Assistant
DX: R19.7 Diarrhea, unspecified (principal)
CPT/HCPCS: 87507